=== PATIENT | male | born 1980 | race Caucasian/White ===

== ENCOUNTER 2017-06-09 10:29 | Emergency (ER) | payer OTHER ==
[2017-06-09 10:53] VITALS: BMI 38.2
[2017-06-09 10:55] VITALS: BP 153/93; PULSE 75; RESP 20; TEMP 98.6; O2SAT 99
--- NOTE | 2017-06-09 11:25 | ED PDOC ---
HPI: Dental Pain/Injury Time Seen by Provider: 06/09/17 11:25 Chief Complaint (Nursing): Dental Pain Chief Complaint (Provider): dental pain History Per: Patient Additional Complaint(s): 36-year-old male presents with dental pain and bleeding gums ongoing for 2-3 months. Patient states he has not seen a dentist in 2-3 years. He denies fever or chills. Patient has not been taking anything for pain. Patient is tolerating liquids and solids. PMD: none Past Medical History Reviewed: Historical Data, Nursing Documentation, Vital Signs Vital Signs: Last Vital Signs Temp 98.6 F 06/09/17 10:54 Pulse 75 06/09/17 10:54 Resp 20 06/09/17 10:54 BP 153/93 H 06/09/17 10:54 Pulse Ox 99 06/09/17 10:54 - Medical History PMH: Hypercholesterolemia - Surgical History Surgical History: Appendectomy - Family History Family History: States: No Known Family Hx - Living Arrangements Living Arrangements: With Family - Social History Current smoker - smoking cessation education provided: No Alcohol: None Drugs: Denies - Home Medications Home Medications: Ambulatory Orders Medication Instructions Recorded Naproxen [Naprosyn] 1 tab PO BID PRN #20 tab 06/16/13 Tramadol Hydrochloride [Tramadol] 1 tab PO TID PRN #20 tab 06/16/13 Amoxicillin 875 mg PO BID #14 tab 06/09/17 Ibuprofen [Motrin Tab] 800 mg PO Q8 PRN #20 tab 06/09/17 - Allergies Allergies/Adverse Reactions: Allergies Allergy/AdvReac Type Severity Reaction Status Date / Time Penicillins Allergy RASH Verified 06/09/17 11:48 Review of Systems ROS Statement: Except As Marked, All Systems Reviewed And Found Negative Constitutional: Negative for: Fever, Chills ENT: Positive for: Other (dental pain, bleeding gums x several months) Gastrointestinal: Negative for: Nausea, Vomiting Neurological: Negative for: Headache, Dizziness Physical Exam - Reviewed Nursing Documentation Reviewed: Yes Vital Signs Reviewed: Yes - Physical Exam Appears: Positive for: Well, Non-toxic, No Acute Distress Skin: Negative for: Rash Eye Exam: Positive for: Normal appearance ENT: Positive for: Other (Mild gingivitis noted to left lower mandible gingiva, no abscess, overall dentition intact with fractured teeth, airway patent, uvula midline) Neck: Positive for: Normal Cardiovascular/Chest: Positive for: Regular Rate, Rhythm Respiratory: Positive for: Normal Breath Sounds Neurologic/Psych: Positive for: Alert, Oriented - ECG O2 Sat by Pulse Oximetry: 99 Pulse Ox Interpretation: Normal Medical Decision Making Medical Decision Makin-year-old male with dental pain and bleeding gums Plan: PO motrin Prescriptions given for amoxicillin and Motrin. Patient was instructed to follow up as soon as possible with dentist. Disposition - Clinical Impression Clinical Impression: Pain, dental, Gingivitis - Patient ED Disposition Is Patient to be Admitted: No Counseled Patient/Family Regarding: Diagnosis, Need For Followup, Rx Given - Disposition Referrals: [facility] [Outside] Disposition: Routine/Home Disposition Time: 11:56 Condition: STABLE Additional Instructions: Takeprescription meds as directed. Follow up as soon as possible with dentist. Prescriptions: Amoxicillin 875 mg PO BID #14 tab Ibuprofen [Motrin Tab] 800 mg PO Q8 PRN #20 tab PRN Reason: Pain, Moderate (4-7) Instructions: Gingivitis (DC), Dental Pain (DC) Forms: [employer] (Maltese) Print Language: KENYAN
== END 2017-06-09 12:24 | disposition home or self-care (01) ==
LOC: H.ER 10:29
DX: K08.89 Other specified disorders of teeth and supporting structures (principal); K05.10 Chronic gingivitis, plaque induced; E78.00 Pure hypercholesterolemia, unspecified; Z88.0 Allergy status to penicillin